=== PATIENT | female | born 1995 | race Caucasian/White ===

== ENCOUNTER 2021-01-29 14:26 | Emergency (ER) | payer OTHER ==
[~2021-01-29 14:26] MED LIST: AMOXICILLIN500 MG PO; CORTISPORIN OTI10 ML EARRT; ZOFRAN4 MG PO
[2021-01-29] MEDS ORDERED: IBUPROFEN600 MG PO (16:09)
== END 2021-01-29 16:12 | disposition home or self-care (01) ==
LOC: ER1 14:26
DX: S60.221A Contusion of right hand, initial encounter (principal); F17.200 Nicotine dependence, unspecified, uncomplicated; W10.9XXA Fall (on) (from) unspecified stairs and steps, initial encounter
CPT/HCPCS: 73130; 99283

== ENCOUNTER 2021-06-18 23:19 | Emergency (ER) | payer OTHER ==
[~2021-06-18 23:19] MED LIST changes: +IBUPROFEN600 MG PO
[2021-06-19 00:56] LABS: HEMOGLOBIN 12.8 gm/dl (12.3-15.3); RED BLOOD COUNT 4.94 M/UL (4.00-5.10); WHITE BLOOD COUNT 12.1 K/UL (4.5-11.0)
[2021-06-19 01:14] LABS: BUN/CREATININE RATIO 13 (0-10)
[2021-06-19] MEDS ORDERED: ZOFRAN4 MG PO (03:27)
[2021-06-19] MEDS ORDERED: PROTONIX40 MG PO (03:27)
== END 2021-06-19 03:41 | disposition home or self-care (01) ==
LOC: ER1 23:19
PROVIDERS: Emergency Medicine; Physician Assistant Medical
DX: R10.11 Right upper quadrant pain (principal); R10.12 Left upper quadrant pain; R11.2 Nausea with vomiting, unspecified; R19.7 Diarrhea, unspecified; Z20.822 Contact with and (suspected) exposure to COVID-19; F17.210 Nicotine dependence, cigarettes, uncomplicated
CPT/HCPCS: 80053; 81001; 83690; 84703; 85025; 96374; 96375; 99284; C9113; J2405; U0002

== ENCOUNTER → 2021-10-13 | Outpatient (CLI) | payer OTHER ==
[~2021-10-13] MED LIST changes: +PROTONIX40 MG PO
== END ==
LOC: KOH-I 14:40
DX: R07.81 Pleurodynia (principal); R91.8 Other nonspecific abnormal finding of lung field
CPT/HCPCS: 71046

== ENCOUNTER 2021-10-24 18:09 | Emergency (ER) | payer OTHER ==
[2021-10-24 19:34] LABS: HEMOGLOBIN 13.8 gm/dl (12.3-15.3); RED BLOOD COUNT 5.33 M/UL (4.00-5.10); WHITE BLOOD COUNT 14.9 K/UL (4.5-11.0)
[2021-10-24 19:51] LABS: BUN/CREATININE RATIO 18 (0-10)
== END 2021-10-24 21:47 | disposition home or self-care (01) ==
LOC: ER1 18:09
PROVIDERS: Physician Assistant
DX: R10.9 Unspecified abdominal pain (principal); M25.561 Pain in right knee; M25.571 Pain in right ankle and joints of right foot; V49.40XA Driver injured in collision with unspecified motor vehicles in traffic accident, initial encounter; Y92.410 Unspecified street and highway as the place of occurrence of the external cause
CPT/HCPCS: 71045; 71260; 73130; 73610; 80053; 81001; 84703; 85025; 87086; 99284; Q9967

== ENCOUNTER → 2022-01-31 | Outpatient (CLI) | payer OTHER ==
[~2022-01-31] MED LIST changes: +CETIRIZINE HCL10 MG PO; +FLUTICASONE SPRAY; +IBU800 MG PO; +KLONOPIN0.5 MG PO; +VIIBRYD20 MG PO; +VITAMIN D21250 MCG PO
[2022-01-31 11:50] LABS: RED BLOOD COUNT 5.16 M/UL (4.00-5.10)
== END ==
LOC: OPSV2 10:00
PROVIDERS: Orthopaedic Surgery
DX: Z01.812 Encounter for preprocedural laboratory examination (principal); G56.01 Carpal tunnel syndrome, right upper limb
CPT/HCPCS: 36415; 85025

== ENCOUNTER → 2022-02-07 | Day surgery (SDC) | payer OTHER ==
[~2022-02-07] MED LIST changes: +HYDROCODON-ACE1 EAC4 PO
== END | disposition home or self-care (01) ==
LOC: OR 05:28
DX: G56.01 Carpal tunnel syndrome, right upper limb (principal); F17.290 Nicotine dependence, other tobacco product, uncomplicated
CPT/HCPCS: 84703; J1100; J2001; J2250; J2405; J2704; J3010; J7120